=== PATIENT | female | born 2000 | race Caucasian/White ===

== ENCOUNTER 2018-02-02 15:17 | Emergency (ER) | payer OTHER ==
[~2018-02-02] VITALS: Ht 162.6 cm; Wt 52.2 kg
== END 2018-02-02 16:56 | disposition home or self-care (01) ==
LOC: ED 15:17
DX: O9A.211 Injury, poisoning and certain other consequences of external causes complicating pregnancy, first trimester (principal); S42.025A Nondisplaced fracture of shaft of left clavicle, initial encounter for closed fracture; S91.011A Laceration without foreign body, right ankle, initial encounter; Z3A.12 12 weeks gestation of pregnancy; V49.59XA Passenger injured in collision with other motor vehicles in traffic accident, initial encounter
CPT/HCPCS: 73000; 99283

== ENCOUNTER 2018-02-11 18:27 | Emergency (ER) | payer OTHER ==
[~2018-02-11] VITALS: Ht 162.6 cm; Wt 52.2 kg
== END 2018-02-11 21:20 | disposition home or self-care (01) ==
LOC: ED 18:27
DX: O9A.211 Injury, poisoning and certain other consequences of external causes complicating pregnancy, first trimester (principal); S42.002A Fracture of unspecified part of left clavicle, initial encounter for closed fracture; W18.30XA Fall on same level, unspecified, initial encounter
CPT/HCPCS: 99283

== ENCOUNTER 2018-02-12 22:13 | Emergency (ER) | payer OTHER ==
[~2018-02-12] VITALS: Ht 162.6 cm; Wt 54.4 kg
== END 2018-02-13 00:12 | disposition home or self-care (01) ==
LOC: ED 22:13
DX: O9A.211 Injury, poisoning and certain other consequences of external causes complicating pregnancy, first trimester (principal); S42.002D Fracture of unspecified part of left clavicle, subsequent encounter for fracture with routine healing; Z3A.14 14 weeks gestation of pregnancy; V89.2XXD Person injured in unspecified motor-vehicle accident, traffic, subsequent encounter
CPT/HCPCS: 99283

== ENCOUNTER 2018-08-13 16:13 | Inpatient (IN) | payer OTHER ==
[~2018-08-13] VITALS: Ht 162.6 cm; Wt 70.0 kg
--- NOTE | 2018-08-13 17:42 | PR ---
[facility] [address] [facility] [place], [place] [address] Signed Progress Notes IP Datetime Report Generated by CPN: 08/13/2018 17:41 PROGRESS NOTES: [id number] Impression: Normal progression of labor Procedures: Artificial ROM Plan: Continue present management; Anticipate Vaginal Delivery VITAL SIGNS: [id number] Vital Signs: Reviewed; Within Normal Limits EXAM: [id number] Dilatation: 4.0 Effacement: 90 Station: -2 Uterine Contractions: every 4-6 minutes MEMBRANES: [id number] Membrane Status: Ruptured Amniotic Fluid Color: Clear ROM Note: AROM with only small amount fluid noted, along with mucous Comments: Tolerating contractions now, but would like Epidural later. Fetus A: [id number] FHR Baseline: 150 Variability: Moderate 6-25bpm Accelerations: 15X15 Presentation: Vertex Fetus B: [id number] Signing Physician: Allie Lee MD Copies: ~ *Electronically Signed* 08/13/18 1741 ALLIE LEE MD PATIENT NAME: STEVE NEWMAN PROGRESS NOTE DATE OF : 98 PHYSICIAN: ALLIE LEE MD RPT #: [id number] REPORT IS CONFIDENTIAL AND NOT TO BE RELEASED WITHOUT AUTHORIZATION
--- NOTE | 2018-08-13 21:42 | PR ---
[facility] [address] [facility] [place], [place] [address] Signed Progress Notes IP Datetime Report Generated by CPN: 08/13/2018 21:42 PROGRESS NOTES: [id number] Impression: Normal progression of labor Procedures: Scalp Electrode Plan: Continue present management; Anticipate Vaginal Delivery VITAL SIGNS: [id number] Vital Signs: Reviewed; Within Normal Limits EXAM: [id number] Dilatation: 10.0 Effacement: 100 Station: 0 Uterine Contractions: every 2-3 minutes MEMBRANES: [id number] Membrane Status: Ruptured Amniotic Fluid Color: Clear ROM Note: AROM with only small amount fluid noted, along with mucous Comments: Comfortable with Epidural. Trouble picking up FHR on [place], so FEKG applied. Will start pushing. Fetus A: [id number] FHR Baseline: 150 Variability: Moderate 6-25bpm Accelerations: 15X15 Decelerations: Variable Presentation: Vertex Other Presentation: OP Fetus B: [id number] Signing Physician: Allie Lee MD Copies: ~ *Electronically Signed* 08/13/18 2142 ALLIE LEE MD PATIENT NAME: STEVE NEWMAN PROGRESS NOTE DATE OF : 98 PHYSICIAN: ALLIE LEE MD RPT #: [id number] REPORT IS CONFIDENTIAL AND NOT TO BE RELEASED WITHOUT AUTHORIZATION
--- NOTE | 2018-08-13 22:41 | PR ---
[facility] [address] [facility] [place], [place] [address] Signed Progress Notes IP Datetime Report Generated by CPN: 08/13/2018 22:41 PROGRESS NOTES: [id number] Impression: Normal progression of labor Procedures: Scalp Electrode Plan: Anticipate Vaginal Delivery VITAL SIGNS: [id number] Vital Signs: Reviewed; Within Normal Limits EXAM: [id number] Dilatation: 10.0 Effacement: 100 Station: 0 Uterine Contractions: every 2-3 minutes MEMBRANES: [id number] Membrane Status: Ruptured Amniotic Fluid Color: Clear ROM Note: AROM with only small amount fluid noted, along with mucous Comments: Pushing well, tried hands-knees, now on left side. Continue pushing Fetus A: [id number] FHR Baseline: 150 Variability: Moderate 6-25bpm Accelerations: 15X15 Decelerations: Variable Presentation: Vertex Other Presentation: LOP Fetus B: [id number] Signing Physician: Allie Lee MD Copies: ~ *Electronically Signed* 08/13/18 2241 ALLIE LEE MD PATIENT NAME: STEVE NEWMAN PROGRESS NOTE DATE OF : 98 PHYSICIAN: ALLIE LEE MD RPT #: [id number] REPORT IS CONFIDENTIAL AND NOT TO BE RELEASED WITHOUT AUTHORIZATION
--- NOTE | 2018-08-13 23:24 | PR ---
[facility] [address] [facility] [place], [place] [address] Signed Progress Notes IP Datetime Report Generated by CPN: 08/13/2018 23:24 PROGRESS NOTES: [id number] Impression: Normal progression of labor Procedures: Scalp Electrode Plan: Continue present management VITAL SIGNS: M9001315 Vital Signs: Reviewed; Within Normal Limits EXAM: [id number] Dilatation: 10.0 Effacement: 100 Station: 1 Uterine Contractions: every 2-3 minutes MEMBRANES: [id number] Membrane Status: Ruptured Amniotic Fluid Color: Clear ROM Note: AROM with only small amount fluid noted, along with mucous Comments: Pushign well, making some progress. continue pushing Fetus A: [id number] FHR Baseline: 150 Variability: Moderate 6-25bpm Accelerations: 15X15 Decelerations: Variable Presentation: Vertex Other Presentation: [place] Comments on Fetus A: deep variables Fetus B: [id number] Signing Physician: Dre Lee MD Copies: ~ *Electronically Signed* 08/13/18 2324 DRE LEE MD PATIENT NAME: STEVE NEWMAN MARIE PROGRESS NOTE DATE OF : 98 PHYSICIAN: DRE LEE MD RPT #: [id number] REPORT IS CONFIDENTIAL AND NOT TO BE RELEASED WITHOUT AUTHORIZATION
--- NOTE | 2018-08-13 23:39 | PR ---
[facility] [address] [facility] [place], [place] [address] Signed Progress Notes IP Datetime Report Generated by CPN: 08/13/2018 23:39 PROGRESS NOTES: [id number] Impression: Slow Progression of Labor Procedures: Scalp Electrode Plan: Continue present management VITAL SIGNS: E3851077 Vital Signs: Reviewed; Within Normal Limits EXAM: I7365423 Dilatation: 10.0 Effacement: 100 Station: 1 Uterine Contractions: every 2-3 minutes MEMBRANES: [id number] Membrane Status: Ruptured Amniotic Fluid Color: Meconium, Light ROM Note: AROM with only small amount fluid noted, along with mucous Comments: Pushing well, minimal progress, now with light meconium. Will continue pushing Fetus A: [id number] FHR Baseline: 150 Variability: Moderate 6-25bpm Accelerations: 15X15 Decelerations: Variable Presentation: Vertex Other Presentation: [place] Comments on Fetus A: deep variables Fetus B: [id number] Signing Physician: Dre Lee MD Copies: ~ *Electronically Signed* 08/13/18 2339 DRE LEE MD PATIENT NAME: STEVE NEWMAN PROGRESS NOTE DATE OF : 98 PHYSICIAN: DRE LEE MD RPT #: [id number] REPORT IS CONFIDENTIAL AND NOT TO BE RELEASED WITHOUT AUTHORIZATION
--- NOTE | 2018-08-14 00:08 | PR ---
[facility] [address] [facility] [place], [place] [address] Signed Progress Notes IP Datetime Report Generated by CPN: 08/14/2018 00:08 PROGRESS NOTES: [id number] Impression: Slow Progression of Labor Procedures: Scalp Electrode Plan: Continue present management VITAL SIGNS: K5982288 Vital Signs: Reviewed; Within Normal Limits EXAM: [id number] Dilatation: 10.0 Effacement: 100 Station: 2 Uterine Contractions: every 1-2 minutes MEMBRANES: [id number] Membrane Status: Ruptured Amniotic Fluid Color: Meconium, Light ROM Note: AROM with only small amount fluid noted, along with mucous Comments: Pushign well, but EPidural not working well, hurting with contractions. Some progress ni past 30 minutes, so will continue pushing. Anesthesia called for redose. Fetus A: [id number] FHR Baseline: 150 Variability: Moderate 6-25bpm Accelerations: 15X15 Decelerations: Variable Presentation: Vertex Other Presentation: [place] Comments on Fetus A: deep variables Fetus B: [id number] Signing Physician: Allie Lee MD Copies: ~ *Electronically Signed* 08/14/18 0008 ALLIE LEE MD PATIENT NAME: STEVE NEWMAN PROGRESS NOTE DATE OF : 98 PHYSICIAN: ALLIE LEE MD RPT #: [id number] REPORT IS CONFIDENTIAL AND NOT TO BE RELEASED WITHOUT AUTHORIZATION
--- NOTE | 2018-08-14 09:04 | PR ---
[facility] [place] [facility] [address] [facility] [place] [address] Signed PP Progress Notes Datetime Report Generated by CPN: 08/14/2018 09:04 SUBJECTIVE: [id number] Pain: Within normal limits Nausea/Vomiting: Denies Vital Signs: F2323351 Vital Signs: Reviewed; Within Normal Limits EXAM: W6750792 Abdomen/Uterus: Normal Lochia: Normal Extremities: Normal IMPRESSION/PLAN/PROCEDURES: P3252934 Impression: Normal progression Plan: Continue present management Procedures: None Progress Notes: Doing well, without complaint. Will increase activity as tolerated, remove [place] this afternoon. Signing Physician: lAlie Lee MD Copies: ~ *Electronically Signed* 08/14/18 0904 ALLIE LEE MD PATIENT NAME: STEVE NEWMAN PROGRESS NOTE DATE OF : 98 PHYSICIAN: ALLIE LEE MD RPT #: [id number] REPORT IS CONFIDENTIAL AND NOT TO BE RELEASED WITHOUT AUTHORIZATION
--- NOTE | 2018-08-15 08:49 | PR ---
[facility] [address] [facility] [place], [place] [address] Signed PP Progress Notes Datetime Report Generated by CPN: 08/15/2018 08:49 SUBJECTIVE: [id number] Pain: Within normal limits Nausea/Vomiting: Denies Vital Signs: [id number] Vital Signs: Reviewed Notable Details: PP Hgb/Hct = 6.9/20.2 EXAM: [id number] Abdomen/Uterus: Normal Lochia: Normal Extremities: Normal IMPRESSION/PLAN/PROCEDURES: O9692488 Impression: Normal progression Other Impression: PP Anemia Plan: Continue present management Procedures: Transfusion Progress Notes: Doing well, wihtout complaint. No c/o weakness or dizziness, normal bleeding, but increased amount just after delivery, treated with IV Pitocin. Discussed transfusion of PRBC's; risks vs benefits. Questions answered. Patient agrees to transfusion; will recheck Hgb/Hct tomorrow Signing Physician: Allie Lee MD Copies: ~ *Electronically Signed* 08/15/18 0849 ALLIE LEE MD PATIENT NAME: STEVE NEWMAN PROGRESS NOTE DATE OF : 98 PHYSICIAN: ALLIE LEE MD RPT #: [id number] REPORT IS CONFIDENTIAL AND NOT TO BE RELEASED WITHOUT AUTHORIZATION
--- NOTE | 2018-08-16 12:30 | PR ---
[facility] [address] [facility] [place] [address] Signed PP Progress Notes Datetime Report Generated by CPN: 08/16/2018 12:30 SUBJECTIVE: [id number] Pain: Within normal limits Nausea/Vomiting: Denies Vital Signs: E3644585 Vital Signs: Reviewed; Within Normal Limits Notable Details: post-transfusion Hgb/Hct = 9.6/28.6 EXAM: O4107698 Abdomen/Uterus: Normal Lochia: Normal Extremities: Normal IMPRESSION/PLAN/PROCEDURES: A5263025 Impression: Normal progression Other Impression: PP Anemia Plan: Discharge Procedures: None Progress Notes: Doing well, without complaint, feeling much better since transfusion, ready to go home. Signing Physician: Allie Lee MD Copies: ~ *Electronically Signed* 08/16/18 1230 ALLIE LEE MD PATIENT NAME: STEVE NEWMAN PROGRESS NOTE DATE OF : 98 PHYSICIAN: ALLIE LEE MD RPT #: [id number] REPORT IS CONFIDENTIAL AND NOT TO BE RELEASED WITHOUT AUTHORIZATION
== END 2018-08-16 14:05 | disposition home or self-care (01) | DRG 806 ==
LOC: FBC 16:13
PROVIDERS: ADMIT General Practice
PROC: 10907ZC Drainage of Amniotic Fluid, Therapeutic from Products of Conception, Via Natural or Artificial Opening (ICD-10-PCS; 2018-08-13)
PROC: 00HU33Z Insertion of Infusion Device into Spinal Canal, Percutaneous Approach (ICD-10-PCS; 2018-08-13)
PROC: 3E0R3BZ Introduction of Anesthetic Agent into Spinal Canal, Percutaneous Approach (ICD-10-PCS; 2018-08-13)
PROC: 10E0XZZ Delivery of Products of Conception, External Approach (ICD-10-PCS; principal; 2018-08-14)
PROC: 0HQ9XZZ Repair Perineum Skin, External Approach (ICD-10-PCS; 2018-08-14)
DX: O70.0 First degree perineal laceration during delivery (principal); O72.1 Other immediate postpartum hemorrhage; Z37.0 Single live birth; D62 Acute posthemorrhagic anemia; Z3A.40 40 weeks gestation of pregnancy; O76 Abnormality in fetal heart rate and rhythm complicating labor and delivery; O77.0 Labor and delivery complicated by meconium in amniotic fluid; O90.81 Anemia of the puerperium
CPT/HCPCS: 36415; 85027; 86850; 86900; 86901; 86920; J2590; J3010; J7120

== ENCOUNTER 2021-01-19 12:30 | Emergency (ER) | payer OTHER ==
[~2021-01-19] VITALS: Ht 162.6 cm; Wt 70.3 kg
--- OUTSIDE RECORDS SUMMARY | 2021-01-19 13:52 | XMS ---
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 Ilir has no Care Guidelines for this patient. Renan VISIT COUNT (12 MO.) 1 [facility] TOTAL 1 NOTE: Visits indicate total known visits. ED/C VISIT TRACKING (12 MO.) 01/19/2021 12:30 [facility] [place] TYPE: Emergency COMPLAINT: - SOB, SORE THROAT, STUFFY NOSE INPATIENT VISIT TRACKING (12 MO.) No inpatient visits to display in this time frame [email or web address]
== END 2021-01-19 14:58 | disposition home or self-care (01) ==
LOC: ED 12:30
DX: O99.613 Diseases of the digestive system complicating pregnancy, third trimester (principal); K21.9 Gastro-esophageal reflux disease without esophagitis; O99.513 Diseases of the respiratory system complicating pregnancy, third trimester; J06.9 Acute upper respiratory infection, unspecified; O99.891 Other specified diseases and conditions complicating pregnancy; R07.89 Other chest pain; Z3A.34 34 weeks gestation of pregnancy; Z20.822 Contact with and (suspected) exposure to COVID-19
CPT/HCPCS: 99284; C9803; U0003

== ENCOUNTER 2021-01-30 17:50 | Emergency (ER) | payer OTHER ==
[~2021-01-30] VITALS: Ht 162.6 cm; Wt 70.3 kg
[2021-01-30] MEDS ORDERED: FEROSUL325 MG PO (17:58)
[2021-01-30] MEDS ORDERED: CHLORHEXIDINE473 ML MM (17:58)
--- OUTSIDE RECORDS SUMMARY | 2021-01-30 17:58 | XMS ---
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 Ilir has no Care Guidelines for this patient. Renna [facility]12 MO.) [facility] NOTE: Visits indicate total known visits. ED/[facility] VISIT TRACKING (12 MO.) [facility] COMPLAINT: - NOSE INJURY 01/19/2021 12:[address] [facility] [place] TYPE: Emergency COMPLAINT: - SOB, SORE THROAT, STUFFY NOSE DIAGNOSES: - Gastro-esophageal reflux disease without esophagitis - Diseases of the digestive system complicating , third trimester - Acute upper respiratory infection, unspecified - 34 weeks gestation of - Other chest pain - Diseases of the respiratory system complicating , third trimester - Other specified diseases and conditions complicating INPATIENT VISIT TRACKING (12 MO.) No inpatient visits to display in this time frame [email or web address]
== END 2021-01-30 20:00 | disposition home or self-care (01) ==
LOC: ED 17:50
DX: O9A.213 Injury, poisoning and certain other consequences of external causes complicating pregnancy, third trimester (principal); S00.33XA Contusion of nose, initial encounter; O99.891 Other specified diseases and conditions complicating pregnancy; R42 Dizziness and giddiness; Z3A.36 36 weeks gestation of pregnancy; Z79.899 Other long term (current) drug therapy
CPT/HCPCS: 99283

== ENCOUNTER 2021-02-22 00:02 | Inpatient (IN) | payer OTHER ==
[~2021-02-22] VITALS: Ht 162.6 cm; Wt 76.2 kg
[~2021-02-22 00:02] MED LIST: CHLORHEXIDINE473 ML MM; FEROSUL325 MG PO
--- NOTE | 2021-02-22 00:21 | NUR ---
Covid swab done to both nares without incident
[2021-02-22] MEDS ORDERED: PRENATAL VITAM1 EACH PO (01:20)
--- NOTE | 2021-02-22 13:04 | PR ---
[facility] [address] [facility] [place], [place] [address] Signed Progress Notes IP Datetime Report Generated by CPN: 02/22/2021 13:04 PROGRESS NOTES: [id number] Impression: Normal Progression of Labor Procedures: Artificial ROM Plan: Continue Present Management; Anticipate Vaginal Delivery VITAL SIGNS: [id number] Vital Signs: Reviewed; Within Normal Limits EXAM: W2269446 Dilatation: 3.0 Effacement: 80 Station: -3 Contractions: every 2-4 minutes MEMBRANES: P9051552 Membranes Status: Ruptured Comments: Tolerating contractions well, considering Epidural later. FETUS A: [id number] FHR Baseline: 120 Variability: Moderate 6-25bpm Accelerations: 15X15 Presentation: Vertex FETUS B: [id number] Signing Physician: Allie Lee MD Copies: ~ *Electronically Signed* 02/22/21 1304 ALLIE LEE MD PATIENT NAME: STEVE NEWMAN PROGRESS NOTE DATE OF : 98 PHYSICIAN: ALLIE LEE MD RPT #: [id number] REPORT IS CONFIDENTIAL AND NOT TO BE RELEASED WITHOUT AUTHORIZATION
--- NOTE | 2021-02-22 16:50 | PR ---
[facility] [address] [facility] [place], [place] [address] Signed Progress Notes IP Datetime Report Generated by CPN: 02/22/2021 16:50 PROGRESS NOTES: [id number] Impression: Normal Progression of Labor Procedures: Artificial ROM Plan: Continue Present Management; Anticipate Vaginal Delivery VITAL SIGNS: N9259690 Vital Signs: Reviewed; Within Normal Limits EXAM: P7008609 Dilatation: 5.0 Effacement: 80 Station: -2 Contractions: every 2-4 minutes MEMBRANES: [id number] Membranes Status: Ruptured Comments: Comfortable with Epidural, beginning to make significant change; will continue monitoring FETUS A: [id number] FHR Baseline: 120 Variability: Moderate 6-25bpm Accelerations: 15X15 Presentation: Vertex FETUS B: [id number] Signing Physician: Allie Lee MD Copies: ~ *Electronically Signed* 02/22/21 1650 ALLIE LEE MD PATIENT NAME: STEVE NEWMAN PROGRESS NOTE DATE OF : 98 PHYSICIAN: ALLIE LEE MD RPT #: [id number] REPORT IS CONFIDENTIAL AND NOT TO BE RELEASED WITHOUT AUTHORIZATION
--- NOTE | 2021-02-22 20:03 | PR ---
[facility] [address] [facility] [place], [place] [address] Signed Progress Notes IP Datetime Report Generated by CPN: 02/22/2021 20:03 PROGRESS NOTES: [id number] Impression: Normal Progression of Labor Procedures: Artificial ROM Plan: Continue Present Management; Anticipate Vaginal Delivery VITAL SIGNS: N5773160 Vital Signs: Reviewed; Within Normal Limits EXAM: M4919743 Dilatation: 9.0 Effacement: 100 Station: -1 Contractions: every 2-4 minutes MEMBRANES: [id number] Membranes Status: Ruptured Comments: Comfmortable with Epidural; still with Anterior lip of cervix. Will try "hands-knees" position to see if this helps. FETUS A: [id number] FHR Baseline: 120 Variability: Moderate 6-25bpm Accelerations: 15X15 Presentation: Vertex FETUS B: [id number] Signing Physician: Allie Lee MD Copies: ~ *Electronically Signed* 02/22/212002 ALLIE LEE MD PATIENT NAME: STEVE NEWMAN PROGRESS NOTE DATE OF : 98 PHYSICIAN: ALLIE LEE MD RPT #: [id number] REPORT IS CONFIDENTIAL AND NOT TO BE RELEASED WITHOUT AUTHORIZATION
--- NOTE | 2021-02-22 20:49 | PR ---
[facility] [address] [facility] [place], [place] [address] Signed Progress Notes IP Datetime Report Generated by CPN: 02/22/2021 20:49 PROGRESS NOTES: [id number] Impression: Normal Progression of Labor Procedures: Artificial ROM Plan: Anticipate Vaginal Delivery VITAL SIGNS: [id number] Vital Signs: Reviewed; Within Normal Limits EXAM: E3330532 Dilatation: 10.0 Effacement: 100 Station: 0 Contractions: every 2-4 minutes MEMBRANES: [id number] Membranes Status: Ruptured Comments: Comfortable with Epidural. Will start pushing FETUS A: [id number] FHR Baseline: 120 Variability: Moderate 6-25bpm Accelerations: 15X15 Presentation: Vertex FETUS B: [id number] Signing Physician: Allie Lee MD Copies: ~ *Electronically Signed* 02/22/212048 ALLIE LEE MD PATIENT NAME: STEVE NEWMAN PROGRESS NOTE DATE OF : 98 PHYSICIAN: ALLIE LEE MD RPT #: [id number] REPORT IS CONFIDENTIAL AND NOT TO BE RELEASED WITHOUT AUTHORIZATION
--- NOTE | 2021-02-22 21:23 | PR ---
[facility] [address] [facility] [place] [address] Signed Progress Notes IP Datetime Report Generated by CPN: 02/22/2021 21:23 PROGRESS NOTES: [id number] Impression: Normal Progression of Labor Procedures: Artificial ROM Plan: Continue Present Management VITAL SIGNS: [id number] Vital Signs: Reviewed; Within Normal Limits EXAM: B6188008 Dilatation: 10.0 Effacement: 100 Station: 0 Contractions: every 2-4 minutes MEMBRANES: [id number] Membranes Status: Ruptured Comments: Pushing well FETUS A: [id number] FHR Baseline: 120 Variability: Moderate 6-25bpm Accelerations: 15X15 Presentation: Vertex FETUS B: [id number] Signing Physician: Allie Lee MD Copies: ~ *Electronically Signed* 02/22/212122 ALLIE LEE MD PATIENT NAME: STEVE NEWMAN PROGRESS NOTE DATE OF : 98 PHYSICIAN: ALLIE LEE MD RPT #: [id number] REPORT IS CONFIDENTIAL AND NOT TO BE RELEASED WITHOUT AUTHORIZATION
--- NOTE | 2021-02-22 22:00 | PR ---
[facility] [address] [facility] [place], [place] [address] Signed Progress Notes IP Datetime Report Generated by CPN: 02/22/2021 22:00 PROGRESS NOTES: [id number] Impression: Normal Progression of Labor Procedures: Artificial ROM Plan: Continue Present Management VITAL SIGNS: U1579043 Vital Signs: Reviewed; Within Normal Limits EXAM: N6349872 Dilatation: 10.0 Effacement: 100 Station: 0 Contractions: every 2-4 minutes MEMBRANES: L5446150 Membranes Status: Ruptured Comments: Continueing to push well, slight progress FETUS A: [id number] FHR Baseline: 120 Variability: Moderate 6-25bpm Accelerations: 15X15 Presentation: Vertex FETUS B: [id number] Signing Physician: Allie Lee MD Copies: ~ *Electronically Signed* 02/22/212199 ALLIE LEE MD PATIENT NAME: STEVE NEWMAN PROGRESS NOTE DATE OF : 98 PHYSICIAN: ALLIE LEE MD RPT #: [id number] REPORT IS CONFIDENTIAL AND NOT TO BE RELEASED WITHOUT AUTHORIZATION
--- NOTE | 2021-02-22 22:27 | PR ---
[facility] [address] [facility] [place], [place] [address] Signed Progress Notes IP Datetime Report Generated by CPN: 02/22/2021 22:27 PROGRESS NOTES: [id number] Impression: Normal Progression of Labor Procedures: Artificial ROM Plan: Continue Present Management VITAL SIGNS: F9561049 Vital Signs: Reviewed; Within Normal Limits EXAM: V3514280 Dilatation: 10.0 Effacement: 100 Station: 0 Contractions: every 2-4 minutes MEMBRANES: C1197717 Membranes Status: Ruptured Comments: Pushing well, fetus tolerating pushing well, but slow progress. Getting more uncomfortable, but Epiduiral wearing off; Anesthesia called for redose. FETUS A: [id number] FHR Baseline: 120 Variability: Moderate 6-25bpm Accelerations: 15X15 Presentation: Vertex FETUS B: [id number] Signing Physician: Allie Lee MD Copies: ~ *Electronically Signed* 02/22/212226 ALLIE LEE MD PATIENT NAME: STEVE NEWMAN PROGRESS NOTE DATE OF : 98 PHYSICIAN: ALLIE LEE MD RPT #: [id number] REPORT IS CONFIDENTIAL AND NOT TO BE RELEASED WITHOUT AUTHORIZATION
--- NOTE | 2021-02-22 23:28 | PR ---
[facility] [address] [facility] [place], [place] [address] Signed Progress Notes IP Datetime Report Generated by CPN: 02/22/2021 23:28 PROGRESS NOTES: [id number] Impression: Arrest of Dilatation/Descent Procedures: Artificial ROM Plan: Continue Present Management Other Plans: Discussed possible C/S VITAL SIGNS: Q4533860 Vital Signs: Reviewed; Within Normal Limits EXAM: Y7061587 Dilatation: 10.0 Effacement: 100 Station: 0 Contractions: every 2-4 minutes MEMBRANES: [id number] Membranes Status: Ruptured Comments: Pushing well, Epidural redosed, but mostly increasing caput with no real change in descent. Pushing for 2.5 hours so far. Discussed LGA fetus and pushed for 3 hours with first, smaller baby. Will continue pushing, but may need to do C/S. Will continue close monitoring. FETUS A: [id number] FHR Baseline: 120 Variability: Moderate 6-25bpm Accelerations: 15X15 Presentation: Vertex FETUS B: [id number] Signing Physician: Allie Lee MD Copies: ~ *Electronically Signed* 02/22/21 3902 ALLIE LEE MD PATIENT NAME: STEVE NEWMAN PROGRESS NOTE DATE OF : 98 PHYSICIAN: ALLIE LEE MD RPT #: [id number] REPORT IS CONFIDENTIAL AND NOT TO BE RELEASED WITHOUT AUTHORIZATION
--- NOTE | 2021-02-23 13:06 | PR ---
[facility] [address] [facility] [place], [place] [address] Signed PP Progress Notes Datetime Report Generated by CPN: 02/23/2021 13:06 SUBJECTIVE: [id number] Pain: Within Normal Limits Nausea/Vomiting: Denies Vital Signs: G0408486 Vital Signs: Reviewed; Within Normal Limits Notable Details: PP Hgb/Hct = 9.3/28.1 EXAM: Ongoing Abdomen/Uterus: Normal Lochia: Normal Extremities: Normal IMPRESSION/PLAN/PROCEDURES: G8374673 Impression: Normal Progression Plan: Continue Present Management Procedures: None Progress Notes: Doing well, without complaint Signing Physician: Allie Lee MD Copies: ~ *Electronically Signed* 02/23/21 1306 ALLIE LEE MD PATIENT NAME: STEVE NEWMAN PROGRESS NOTE DATE OF : 98 PHYSICIAN: ALLIE LEE MD RPT #: [id number] REPORT IS CONFIDENTIAL AND NOT TO BE RELEASED WITHOUT AUTHORIZATION
--- NOTE | 2021-02-24 10:38 | PR ---
[facility] [address] [facility] [place] [address] Signed PP Progress Notes Datetime Report Generated by CPN: 02/24/2021 10:38 SUBJECTIVE: [id number] Pain: Within Normal Limits Nausea/Vomiting: Denies Vital Signs: [id number] Vital Signs: Reviewed; Within Normal Limits Notable Details: PP Hgb/Hct = 9.3/28.1 EXAM: Ongoing Abdomen/Uterus: Normal Lochia: Normal Extremities: Normal IMPRESSION/PLAN/PROCEDURES: [id number] Impression: Normal Progression Plan: Discharge Procedures: None Progress Notes: Doing well, without complaint, ready to go home. Signing Physician: Allie Lee MD Copies: ~ *Electronically Signed* 02/24/21 1038 ALLIE LEE MD PATIENT NAME: STEVE NEWMAN PROGRESS NOTE DATE OF : 98 PHYSICIAN: ALLIE LEE MD RPT #: [id number] REPORT IS CONFIDENTIAL AND NOT TO BE RELEASED WITHOUT AUTHORIZATION
== END 2021-02-24 11:35 | disposition home or self-care (01) | DRG 807 ==
LOC: FBC 00:02
PROVIDERS: ADMIT General Practice; ATTEND General Practice
PROC: 10E0XZZ Delivery of Products of Conception, External Approach (ICD-10-PCS; principal; 2021-02-22)
PROC: 10907ZC Drainage of Amniotic Fluid, Therapeutic from Products of Conception, Via Natural or Artificial Opening (ICD-10-PCS; 2021-02-22)
PROC: 0HQ9XZZ Repair Perineum Skin, External Approach (ICD-10-PCS; 2021-02-22)
PROC: 3E0DXGC Introduction of Other Therapeutic Substance into Mouth and Pharynx, External Approach (ICD-10-PCS; 2021-02-22)
PROC: 3E0R3BZ Introduction of Anesthetic Agent into Spinal Canal, Percutaneous Approach (ICD-10-PCS; 2021-02-22)
PROC: 00HU33Z Insertion of Infusion Device into Spinal Canal, Percutaneous Approach (ICD-10-PCS; 2021-02-22)
DX: O36.63X0 Maternal care for excessive fetal growth, third trimester, not applicable or unspecified (principal); Z37.0 Single live birth; O62.1 Secondary uterine inertia; Z20.822 Contact with and (suspected) exposure to COVID-19; O69.81X0 Labor and delivery complicated by cord around neck, without compression, not applicable or unspecified; O70.0 First degree perineal laceration during delivery; O99.02 Anemia complicating childbirth; D64.9 Anemia, unspecified; Z3A.39 39 weeks gestation of pregnancy
CPT/HCPCS: 01960; 85027; A9270; C9803; J2405; J2590; J2795; J3010; U0003